=== PATIENT | female | born 1960 | race Caucasian/White ===

== ENCOUNTER 2016-08-03 08:16 | Day surgery (SDC) | payer BC ==
[2016-07-29 14:23] LABS: BASOPHILS 0.4 %; BASOPHILS ABSOLUTE 0.02 10/3/uL (0.0-0.16); EOSINOPHILS ABSOLUTE 0.17 10/3/uL (0.0-0.53); HEMATOCRIT 38.7 % (36.0-48.0); HEMOGLOBIN 12.4 g/dL (12.0-16.0); IMMATURE GRANULOCYTES 0.4 %; IMMATURE GRANULOCYTES ABSOLUTE 0.02 10/3/uL (0.0-0.11); LYMPHOCYTES 25.6 %; LYMPHOCYTES ABSOLUTE 1.45 10/3/uL (0.67-4.30); MANUAL DIFF NO %; MEAN CORPUSCULAR HEMOGLOB 28.8 pg (26.0-34.0); MEAN CORPUSCULAR VOLUME 89.8 fL (80-100); MEAN PLATELET VOLUME 9.6 fL (9.2-13.0); MONOCYTES 10.1 %; MONOCYTES ABSOLUTE 0.57 10/3/uL (0.21-1.20); NEUTROPHILS 60.5 %; NEUTROPHILS ABSOLUTE 3.43 10/3/uL (2.02-8.40); PLATELET COUNT 273 10/3/uL (150-400); RBC DISTRIBUTION WIDTH 12.9 % (12.0-16.0); RED CELL COUNT 4.31 10/6/uL (4.0-5.6); WHITE BLOOD CELLS 5.7 10/3/uL (4.5-10.5)
[2016-07-29 14:28] LABS: ASCORBIC ACID (UR NOT ORDER) NEG (NEG); BILIRUBIN, URINE NEGATIVE (NEG); KETONE, URINE NEGATIVE (NEG); LEUKOCYTE ESTERASE(NOT OR SMALL (NEG); WBC (NOT ORDERED) (RFLEX) 29 (0-5)
[2016-07-29 14:33] LABS: BUN (BLOOD UREA NITROGEN) 14 MG/DL (6-23); CALCIUM, SERUM 9.1 MG/DL (8.5-10.4); CHLORIDE, SERUM 106 MMOL/L (96-112); CO2 (CARBON DIOXIDE) 30 MMOL/L (24-34); CREATININE 1.19 MG/DL (0.55-1.02); GFR AFRICAN AMERICAN 60 ML/MIN (>=60); GFR NON AFRICAN AMERICAN 51 ML/MIN (>=60); GLUCOSE, SERUM 96 MG/DL (60-99); POTASSIUM, SERUM 4.2 MMOL/L (3.5-5.3); SODIUM, SERUM 141 MMOL/L (135-148)
--- NOTE | ~2016-08-03 | OP ---
[facility]. [address] NAME: CARLTON MCCAIN : 62 STATUS : [facility]#: [id number] AGE: 56 ADM/REG DATE : 08/03/16 MR#: [id number] REPORT SERV DATE: 08/05/16 DICTATED BY: OLMAN ZAMBRANO DATE: 08/05/16 REPORT STATUS : Draft TRANSCRIBED BY: MODL DATE: 08/05/16 DATE OF PROCEDURE: 08/03/2016 PREOPERATIVE DIAGNOSES: 1. Abnormal uterine bleeding. 2. Endometrial polyps. POSTOPERATIVE DIAGNOSES: 1. Abnormal uterine bleeding. 2. Endometrial polyps. PROCEDURE: Hysteroscopy with dilation and curettage and polypectomy. CPT code 66944. SURGEONS: Olman Zambrano MD. ANESTHESIA: General. ESTIMATED BLOOD LOSS: 25 mL. CRYSTALLOID: 400 mL. FINDINGS: Multiple polyps throughout the endometrial cavity. These were all removed using polyp forceps. There was a relatively hyperplastic endometrium in addition to the polyps, but no dominant neoplastic process appreciated. PATHOLOGY: 1. Endometrial polyps. 2. Endometrial curettings. COMPLICATIONS: None. POSTOPERATIVE PLAN: Extubated to the PACU. PROCEDURE IN DETAIL: After informed consent was signed, the patient was taken to the operating room, and placed in dorsal supine position, where adequate general anesthesia was administered. She was then placed in dorsal lithotomy position in Nikos stirrups, and prepped and draped in the usual fashion, and a Torres catheter was placed. The uterus was sounded, cervix was dilated, and the hysteroscope was then placed through the endocervical canal into the endometrial cavity, and the cavity was dilated with appropriate media, findings as above were noted. The hysteroscope was then removed, and the cervix was dilated further. Using polyp forceps, multiple endometrial polyps were removed, and sharp curettings were then performed of all four quadrants of the endometrial cavity. Excellent hemostasis was noted. Exam under anesthesia was normal. The patient was placed back in dorsal supine position, awakened, extubated, and sent to the PACU in stable condition. Record Of [facility] 5 [facility] [place]. [address] NAME: CARLTON MCCAIN : 62 STATUS : [facility]#: [id number] AGE: 56 ADM/REG DATE : 08/03/16 MR#: [id number] REPORT SERV DATE: 08/05/16 DICTATED BY: OLMAN ZAMBRANO DATE: 08/05/16 REPORT STATUS : Draft TRANSCRIBED BY: MODL DATE: 08/05/16 TB/BARRY Olman Zambrano MD / [id number] CC: MD Dannie Crawford MD
[~2016-08-03 08:16] MED LIST: VIMOVO 500-201 EACH PO
[2017-01-19] MEDS ORDERED: T PO (10:56)
[2017-01-19] MEDS ORDERED: PCET PO (10:57)
[2017-01-19] MEDS ORDERED: COMP10B PO (10:58)
[2017-01-19] MEDS ORDERED: MYTAB GAS80 MG PO (10:58)
[2017-01-19] MEDS ORDERED: MCZ25 PO (13:15)
== END 2016-08-03 15:21 | disposition home or self-care (01) ==
LOC: SDC 08:16
PROVIDERS: Obstetrics & Gynecology Gynecology
PROC: 0UDB8ZX Extraction of Endometrium, Via Natural or Artificial Opening Endoscopic, Diagnostic (ICD-10-PCS; 2016-08-03)
PROC: 0UB98ZX Excision of Uterus, Via Natural or Artificial Opening Endoscopic, Diagnostic (ICD-10-PCS; principal; 2016-08-03 09:15)
DX: N84.0 Polyp of corpus uteri (principal); E66.9 Obesity, unspecified; Z68.41 Body mass index [BMI] 40.0-44.9, adult
CPT/HCPCS: 71020; 80048; 81001; 84703; 85025; 87077; 87086; 87186; 88305; 93005; A9270-GY; J0694; J1885; J2250; J2270; J2405; J2550; J3010